=== PATIENT | male | born 1945 | race Caucasian/White ===

== ENCOUNTER 2019-11-24 12:34 | Outpatient (CLI) | payer MEDICARE, OTHER, SELFPAY ==
--- NOTE | ~2019-11-24 | XR_ITS ---
EXAMINATION: XR abdomen/kub 1V INDICATION: Right ureteral stone TECHNIQUE: Supine views of the abdomen were obtained on 2 radiographs. COMPARISON: 07/29/2017 FINDINGS: A 5 mm calcification projects in the left abdomen between the left L3 and L4 transverse pro cesses. There are phleboliths of the pelvis. The bowel gas pattern is normal. There is mild hip osteo arthritis. IMPRESSION: 1. 5 mm calcification projecting in the left mid abdomen which may be in the left kidney or possibly left ureter. Reviewed, dictated and finalized at location A. IMPRESSION: 1. 5 mm calcification projecting in the left mid abdomen which may be in the le ft kidney or possibly left ureter.
== END 2019-11-24 12:35 | disposition home or self-care (01) ==
LOC: ANHIMG 12:41
PROVIDERS: PCP Nurse Practitioner Adult Health; Visit Provider Urology
DX: N20.1 Calculus of ureter (principal)
CPT/HCPCS: 74018

== ENCOUNTER 2019-12-07 14:24 | Outpatient (CLI) | payer MEDICARE, OTHER, SELFPAY ==
--- NOTE | ~2019-12-07 | CT_ITS ---
EXAMINATION: CT abdomen pelvis wo con DATE: 12/07/2019 15:21 INDICATION: Right ureteral stone. TECHNIQUE: Computed tomography (CT) of the abdomen and pelvis was performed without intravenous contr ast. Automated exposure control and iterative reconstruction technique were employed. The dose-length product was 556.88 mGy-cm. COMPARISON: CT abdomen and pelvis 08/29/2017, 01/03/17 FINDINGS: The visualized portions of the lung bases demonstrate pleural thickening on the left. A brigida cified right lung nodule is consistent with old granulomatous disease. There is mild atelectasis and chronic lung disease of the right. There are peripheral masses and nodules in left lower lobe. For ex ample, a 5.6 x 3.3 cm mass is stable from 01/03/17. The heart size is normal. No pericardial effusion . The liver, gallbladder, spleen, pancreas, adrenal glands, and right kidney are normal. There is a 7 mm stone in proximal right ureter. There are peripelvic cysts in left kidney. There is 6 mm and 3 mm stones in left kidney. There are bilateral inguinal hernias containing fat. There is diverticulosis of the colon without evidence of diverticulitis. There are no dilated loops of bowel. The appendix is normal. There is an umbilical hernia containing fat. There are no pathologically enlarged lymph node s. There is no free intraperitoneal fluid. There is severe lumbar spondylosis. There is a chronic com pression fracture of T12. IMPRESSION: 1. 7 mm stone in proximal right ureter. No hydronephrosis. 2. Nonobstructing left kidney stones. 3. Chronic masses and nodules in left lung lower lobe, stable from 01/03/2017. These findings may be m etastatic disease and/or rounded atelectasis. Reviewed, dictated and finalized at location A. IMPRESSION: 1. 7 mm stone in proximal right ureter. No hydronephrosis. 2. Nonobstructing left kidney stones. 3. Chronic masses and nodules in left lung lower lobe, stable from 01/03/2017. T hese findings may be metastatic disease and/or rounded atelectasis.
== END 2019-12-07 14:25 | disposition home or self-care (01) ==
PROVIDERS: PCP Nurse Practitioner Adult Health; Visit Provider Urology
DX: N20.2 Calculus of kidney with calculus of ureter (principal)
CPT/HCPCS: 74176

== ENCOUNTER 2019-12-22 03:14 | Outpatient (CLI) | payer MEDICARE, OTHER, SELFPAY ==
[2019-12-22 17:56] LABS: SARS-CoV-2 RNA PCR Negative
== END 2019-12-22 03:15 | disposition home or self-care (01) ==
LOC: ANHCOVIDDT 03:14
PROVIDERS: PCP Nurse Practitioner Adult Health; Visit Provider Urology
DX: Z01.818 Encounter for other preprocedural examination (principal); Z11.59 Encounter for screening for other viral diseases
CPT/HCPCS: 87635; C9803; U0003

== ENCOUNTER 2019-12-24 02:52 | Day surgery (SDC) | payer MEDICARE, OTHER, SELFPAY ==
[2019-12-21 13:31] VITALS: BMI 32.0
--- NOTE | 2019-12-21 18:14 | P.HP_ITS ---
History of Present Illness History of Present Illness Consent: Risks, benefits, and alternatives have been discussed and questions answered. Patient agrees to proceed with procedure. Chief complaint: Right Ureteral Stone Narrative: Rufino Dela Cruz is a 73 year old male well known to our practice with a long history of BPH. He also has a history of urolithiasis requiring endoscopic extraction in 2016. In November [address]-abd/pelvis in an outside hospital suggesting a 7 mm right proximal ureteral stone. This stone was not calcified on KUB but does show up on repeat CT. After discussion of therapeutic options he has elected for cystoscopy with right ureteroscopy, laser lithotripsies, stone extraction and possible stent placement. Review of Systems Cardiovascular: Cardiovascular: Denies chest pain, Denies lightheadedness, Denies palpitations and Denies dyspnea Respiratory: Respiratory: Denies dyspnea Gastrointestinal: Gastrointestinal: Denies diarrhea, Denies nausea and Denies vomiting Genitourinary: Genitourinary: Denies hematuria and Denies dysuria Endocrine: Endocrine: Denies palpitations [facility] Social History Social History Smoking status: Never smoker Spiritual care concerns: No Meds Home Medications and Allergies Home Medications Medication Instructions Recorded Confirmed Type finasteride 5 mg PO DAILY 04/01/19 12/21/19 History [id number] 1 cap PO DAILY 04/01/19 12/21/19 History [Daily Multivitamin] nintedanib [Ofev] 100 mg PO Q12H 04/01/19 12/21/19 History Allergies Allergy/AdvReac Type Severity Reaction Status Date / Time No Known Allergies Allergy Verified 12/21/19 13:19 Exam Const: General: no acute distress Resp: Effort & Inspection: normal respiratory effort GI: Inspection: non-distended GI Palp: No abdominal tenderness and No Guarding due to palpation present (GI) Auscultation: normal bowel sounds Assessment and Plan Assessment and plan (1) Right ureteral stone: Code(s): N20.1 - Calculus of ureter Status: Acute Assessment and Plan: * cystoscopy, right ureteroscopy with laser lithotripsy, right ureteral stone extraction and possible stent placement
--- NOTE | 2019-12-23 10:00 | P.PNAN_ITS ---
Anes - Initial Pre Proc Eval Procedure: Operation Date: 12/24/19 13:00 Proposed Procedures p Cystoscopy, Right Ureteroscopy, Right Stone Extraction, Possible Right Stent Placement - Germain Dye MD s Holmium Laser Procedure - Germain Dye MD <Kenneth Crouch MD - Last Filed: 12/25/19 10:06> Date/Time: 12/23/19 10:00 <Kenneth Crouch MD - Last Filed: 12/25/19 10:06> Surgeon: Germain Dye MD <Kenneth Crouch MD - Last Filed: 12/25/19 10:06> Pre Op Diagnosis: Right Ureteral Stone <Kenneth Crouch MD - Last Filed: 12/25/19 10:06> Patient Data Age: 73 Gender: M Height: 1.78 m Weight: 101.25 kg <Kenneth Crouch MD - Last Filed: 12/25/19 10:06> Allergies Allergy/AdvReac Type Severity Reaction Status Date / Time No Known Allergies Allergy Verified 12/24/19 11:13 <Kenneth Crouch MD - Last Filed: 12/25/19 10:06> Home Medications Medication Instructions Recorded Confirmed Type Daily Multivitamin 1 cap PO DAILY 04/01/19 12/24/19 History Ofev 100 mg PO Q12H 04/01/19 12/24/19 History finasteride 5 mg PO DAILY 04/01/19 12/24/19 History hydrocodone-acetaminophen 1 - 2 tablet PO Q6H PRN #20 tablet 12/24/19 Rx sulfamethoxazole-trimethoprim 1 tablet PO Q12H #6 tablet 12/24/19 Rx <Kenneth Crouch MD - Last Filed: 12/25/19 10:06> Patient hx anesthesia problems: none <Emerson Zhao DO - Last Filed: 12/24/19 11:42> Family hx anesthesia problems: none <Emerson Zhao DO - Last Filed: 12/24/19 11:42> [facility] Past Medical History Medical History: Medical History (Updated 12/23/19 @ 10:01 by Kenneth Crouch MD) Cancer LUNG CA DX 2012 NO SURGERY. O2 AT 2L PER NC PRN Obesity OBI (obstructive sleep apnea) Right ureteral stone <Kenneth Crouch MD - Last Filed: 12/25/19 10:06> Social History Social History: Social History Smoking status: Never smoker Living arrangements: with family Spiritual care concerns: No <Kenneth Crouch MD - Last Filed: 12/25/19 10:06> Anes - Eval Final PreProcedure Day of Procedure 12/23/19 10:00 <Kenneth Crouch MD - Last Filed: 12/25/19 10:06> Patient weight: obese <Kenneth Crouch MD - Last Filed: 12/25/19 10:06> Heart: regular rate and rhythm <Kenneth Crouch MD - Last Filed: 12/25/19 10:06> Lungs: clear to auscultation and normal air movement <Kenneth Crouch MD - Last Filed: 12/25/19 10:06> Airway: Mallampati scale class II <Kenneth Crouch MD - Last Filed: 12/25/19 10:06> Neurological: alert and oriented <Kenneth Crouch MD - Last Filed: 12/25/19 10:06> Last oral intake: >/= 8 hours <Kenneth Crouch MD - Last Filed: 12/25/19 10:06> ASA classification: III <Kenneth Crouch MD - Last Filed: 12/25/19 10:06> Emergent: no <Kenneth Crouch MD - Last Filed: 12/25/19 10:06> Anesthetic plan: proceed <Kenneth Crouch MD - Last Filed: 12/25/19 10:06> Anesthesia type and monitoring: general LMA <Kenneth Crouch MD - Last Filed: 12/25/19 10:06> Informed Consent: The patient's anesthetic plan and its attendant risks and benefits were discussed with the patient/family/POA. Questions were solicited and answers provided to the satisfaction of the patient/family/POA. <Kenneth Crouch MD - Last Filed: 12/25/19 10:06
[2019-12-24] VITALS (9 sets, daily range): BP systolic 139–173; BP diastolic 66–76; PULSE 61–85; RESP 16–20; TEMP 36.3–36.4; O2SAT 97–100
--- NOTE | ~2019-12-24 | XR_ITS ---
EXAMINATION: XR retrograde pyelo w/stent RT DATE: 12/24/2019 13:42 INDICATION: Right internal ureteral stent placement TECHNIQUE: Fluoroscopic images from a right internal ureteral stent placement are submitted for jimmy sanchez 52 seconds of fluoroscopy time. FINDINGS: There is a right double-J internal ureteral stent projecting in expected position, with proximal Clyde loop at the level of the renal pelvis and distal loop in the pelvis within the bladder lumen. IMPRESSION: 1. Right internal ureteral stent placement. Please refer to real-time procedural findings for detai ls. Reviewed, dictated and finalized at location A. IMPRESSION: 1. Right internal ureteral stent placement. Please refer to real-time procedu ral findings for details.
--- NOTE | 2019-12-24 06:55 | WPDHPUPDATE1 ---
History and Physical Update Update Date/Time: 12/24/19 06:55 History and Physical has been reviewed, including an updated exam of the patient. There are NO changes in the patient's condition. Risks, benefits, and alternatives have been discussed and questions answered. Patient agrees to proceed with procedure.
[2019-12-24] MEDS: LACTATED RINGERS 1,000 ML 30 ML IV CONT (11:25)
[2019-12-24] MEDS: ceFAZolin 2 GM/D5W 50 ML 2 GM/50 ML BAG IVPB (13:03)
--- NOTE | 2019-12-24 13:41 | PM.PROC ---
Procedure Note - Detailed Date of procedure: 12/24/19 Pre-op diagnosis: Right Ureteral Stone Post-op diagnosis: same Procedure performed: Cystoscopy, right retrograde pyelography, right ureteroscopy laser lithotripsy/stone extraction and right ureteral stent placement Description of procedure: The patient was brought to the operative suite where he is prepped and draped in a routine sterile fashion while in the dorsal lithotomy position after the uneventful induction of a general LMA anesthetic. A 19F rigid cystoscope was placed in the bladder. There are no urethral strictures. His prostatic urethra measures, approximately, 1.5cm with small median lobe enlargement. The bladder mucosa was endoscopically normal without hyperemia or neoplasm. There was a single, orthotopic ureteral orifice bilaterally. A 0.035 glidewire was advanced into the right renal pelvis under fluoroscopy. The distal ureter was dilated with an 8F/10F ureteral dilator. The right retrograde pyelogram was obtained through the 10 F dilator. This confirms the presence of a large calcified right mid ureteral stone above the iliac vessels. I placed a ureteral access sheath.Ureteroscopy was undertaken with a 7.5F flexible ureteroscope and with ureteroscopy I fractured the stone into smaller pieces using a 273 micron Holmium laser fiber with the Holmium laser. I was able to then extract all visible stone pieces using a 1.9F Escape, disposable stone basket. Due to the extent of this manipulation I did place a 4.8F double-J ureteral stent. The proximal coil of the stent was confirmed to be in the renal pelvis and the distal coil in the bladder. The patient's bladder was emptied and he was taken to the recovery room having tolerated this procedure well. Anesthesia: GLMA Surgeon: Germain Dye MD Estimated blood loss (mL): 0 Drains: Yes (4.8F right ureteral stent) Packing: No Pathology: yes Complications: No immediate complications Condition: stable Disposition: PACU
--- NOTE | 2019-12-24 15:53 | SUR.PHASEII ---
PT C/O RIGHT FLANK/ABDOMINAL CRAMPING BEFORE 2ND VOID; FELT COLD; BLANKETS APPLIED. TEMP 97.4. PAIN MED GIVEN. PT RESTING.
== END 2019-12-24 16:00 | disposition home or self-care (01) ==
PROVIDERS: PCP Nurse Practitioner Adult Health; Visit Provider Urology
PROC: (CPT 52352; principal; 2019-12-24 13:00)
PROC: (CPT 52356; 2019-12-24 13:00)
DX: N20.1 Calculus of ureter (principal); N40.0 Benign prostatic hyperplasia without lower urinary tract symptoms; G47.33 Obstructive sleep apnea (adult) (pediatric); E66.9 Obesity, unspecified; Z68.32 Body mass index [BMI] 32.0-32.9, adult; Z79.899 Other long term (current) drug therapy; Z85.118 Personal history of other malignant neoplasm of bronchus and lung
CPT/HCPCS: 52356; 74420; 82365; 88300; A9270; C1769; C1894; C2617; J0690; J1100; J2405; J2704; J3010; J7120; Q9966

== ENCOUNTER 2020-01-06 09:47 | Outpatient (CLI) | payer MEDICARE, OTHER, SELFPAY ==
[2020-01-06 18:42] LABS: SARS-CoV-2 RNA PCR Negative
== END 2020-01-06 09:48 | disposition home or self-care (01) ==
LOC: ANHCOVIDDT 09:48
PROVIDERS: PCP Nurse Practitioner Adult Health; Visit Provider Urology
DX: Z20.828 Contact with and (suspected) exposure to other viral communicable diseases (principal); Z11.59 Encounter for screening for other viral diseases
CPT/HCPCS: 87635; C9803; U0003

== ENCOUNTER 2020-01-06 10:09 | Outpatient (CLI) | payer MEDICARE, OTHER, SELFPAY ==
[2020-01-06 11:23] LABS: Add Urine Microscopic? YES; Appearance Urine Clear (Clear); Bilirubin Urine Negative (Negative); Blood Urine 1+ (Negative); Color Urine Yellow (Yellow); Glucose Urine UA Negative (Negative); Ketones Urine Negative (Negative); Leukocyte Esterase Ur Negative LEU/UL (Negative); Mucus Urine Few /lpf; Nitrate Urine Negative (Negative); Protein Urine Negative (Negative); Urobilinogen Urine Negative mg/dL (<2.0)
[2020-01-06 11:31] LABS: Prothrombin Time 12.9 Seconds (11.1-14.7)
[2020-01-06 11:32] LABS: Partial Thromboplastin Time 29.4 SECONDS (22.3-36.8)
== END 2020-01-06 10:10 | disposition home or self-care (01) ==
PROVIDERS: PCP Nurse Practitioner Adult Health; Visit Provider Urology
DX: Z01.818 Encounter for other preprocedural examination (principal); N20.0 Calculus of kidney
CPT/HCPCS: 36415; 81001; 85610; 85730; 87635; C9803; U0003

== ENCOUNTER 2020-01-08 01:37 | Day surgery (SDC) | payer MEDICARE, OTHER, SELFPAY ==
[2020-01-06 10:21] VITALS: BP 138/75; PULSE 65; RESP 18; TEMP 36.7; O2SAT 96; BMI 32.5
[2020-01-08] VITALS (7 sets, daily range): BP systolic 137–165; BP diastolic 63–80; PULSE 57–70; RESP 18–20; TEMP 36.1–36.2; O2SAT 96–100
--- NOTE | ~2020-01-08 | XR_ITS ---
EXAMINATION: XR abdomen/kub 1V DATE: 01/08/2020 06:47 INDICATION: Nephrolithiasis for planned lithotripsy TECHNIQUE: A supine view of the abdomen on 2 radiographs was obtained. COMPARISON: CT dated 12/07/2019 FINDINGS: There are a pair of small stones at the lower pole of the left kidney the larger measuring 4 mm. The previously seen 8 x 3 mm stone in the distal right ureter is not definitively visualized. There are a couple unchanged small phleboliths in the right hemipelvis. Prostatic calcifications. Small amount o f gas scattered throughout nondistended bowel in a nonobstructive bowel gas pattern. Chronic T12 comp ression fracture. Moderate lower lumbar spondylosis.. IMPRESSION: 1. No change in a pair of stones at the lower pole of the left kidney. Prior stone seen in the right ureter is not identified. Reviewed, dictated and finalized at location A. IMPRESSION: 1. No change in a pair of stones at the lower pole of the left kidney. Prior st one seen in the right ureter is not identified.
--- NOTE | 2020-01-08 06:55 | WPDHPUPDATE1 ---
History and Physical Update Update Date/Time: 01/08/20 06:55 History and Physical has been reviewed, including an updated exam of the patient. There are NO changes in the patient's condition. Risks, benefits, and alternatives have been discussed and questions answered. Patient agrees to proceed with procedure.
--- NOTE | 2020-01-08 07:14 | P.PNAN_ITS ---
Anes - Initial Pre Proc Eval Procedure: Operation Date: 01/08/20 08:30 Proposed Procedures p Left Ureteral Extracorporeal Shock Wave Lithotripsy - Germain Dye MD Date/Time: 01/08/20 07:14 Surgeon: Germain Dye MD Pre Op Diagnosis: Left Ureteral Stone Patient Data Age: 74 Gender: M Height: 5 ft 9.5 in Weight: 101.5 kg Last Vital Signs Temp 36.7 C 01/06/20 10:21 Pulse 65 01/06/20 10:21 Resp 18 01/06/20 10:21 BP 138/75 01/06/20 10:21 Pulse Ox 96 01/06/20 10:21 Allergies Allergy/AdvReac Type Severity Reaction Status Date / Time No Known Allergies Allergy Verified 01/06/20 10:17 Home Medications Medication Instructions Recorded Confirmed Type Daily Multivitamin 1 cap PO DAILY 04/01/19 01/06/20 History Ofev 200 mg PO Q12H 04/01/19 01/06/20 History finasteride 5 mg PO QAM 04/01/19 01/06/20 History Patient hx anesthesia problems: none Family hx anesthesia problems: none PMFSH Past Medical History Medical History Cancer LUNG CA DX 2012 NO SURGERY. O2 AT 2L PER NC PRN Obesity OBI (obstructive sleep apnea) Right ureteral stone Social History Social History Smoking status: Never smoker Alcohol intake: current Alcohol use details: VERY RARELY Substance use: never Living arrangements: with family Spiritual care concerns: No Anes - Eval Final PreProcedure Day of Procedure 01/08/20 07:14 Patient weight: obese Heart: regular rate and rhythm Lungs: decreased breath sounds Airway: Mallampati scale class II Neurological: alert and oriented Last oral intake: >/= 8 hours ASA classification: III Emergent: no Anesthetic plan: proceed Anesthesia type and monitoring: general LMA and standard monitoring Informed Consent: The patient's anesthetic plan and its attendant risks and be nefits were discussed with the patient/family/POA. Questions were solicited and answers provided to the satisfaction of the patient/family/POA.
[2020-01-08] MEDS: LACTATED RINGERS 1,000 ML 30 ML IV CONT ×2 (07:15→09:14)
[2020-01-08] MEDS: ceFAZolin 2 GM/D5W 50 ML 2 GM/50 ML BAG IVPB (08:27)
--- NOTE | 2020-01-08 09:17 | PM.PROC ---
Procedure Note - Detailed Date of procedure: 01/08/20 Pre-op diagnosis: Left Ureteral Stone Post-op diagnosis: same Procedure performed: Left ESWL Description of procedure: The patient was brought to the operative suite where he was placed in the supine position on the Dornier lithotripsy table. The focal point of the lithotripter was placed at a 6mm left renal calculus. A total of 2500 shocks were delivered at a power setting of 4. There appeared to be good fragmentation of the stone. The patient tolerated the procedure well and was taken to the recovery room in good condition. Anesthesia: GLMA Surgeon: Germain Dye MD Estimated blood loss (mL): 0 Drains: No Packing: No Pathology: none sent Complications: No immediate complications Condition: stable Disposition: PACU
== END 2020-01-08 10:48 | disposition home or self-care (01) ==
PROVIDERS: PCP Nurse Practitioner Adult Health; Visit Provider Urology
PROC: (CPT 50590; principal; 2020-01-08 08:30)
DX: N20.1 Calculus of ureter (principal); G47.33 Obstructive sleep apnea (adult) (pediatric); E66.9 Obesity, unspecified; Z68.32 Body mass index [BMI] 32.0-32.9, adult; Z85.118 Personal history of other malignant neoplasm of bronchus and lung
CPT/HCPCS: 50590; 74018; J0131; J0690; J1100; J1885; J2405; J2704; J3010; J7120

== ENCOUNTER 2020-01-18 14:24 | Outpatient (CLI) | payer MEDICARE, OTHER, SELFPAY ==
--- NOTE | ~2020-01-18 | XR_ITS ---
EXAMINATION: XR abdomen/kub 1V DATE: 01/18/2020 14:49 INDICATION: Right ureteral stone. TECHNIQUE: A supine view of the abdomen on 2 radiographs was obtained. COMPARISON: CT abdomen and pelvis 12/07/2019 FINDINGS: There are no dilated loops of bowel. There are 6 mm and 3 mm stones in left kidney. There a re phleboliths in the pelvis. IMPRESSION: 1. Left kidney stones. Reviewed, dictated and finalized at location B. IMPRESSION: 1. Left kidney stones.
== END 2020-01-18 14:25 | disposition home or self-care (01) ==
LOC: ANHIMG 14:29
PROVIDERS: PCP Nurse Practitioner Adult Health; Visit Provider Urology
DX: N20.1 Calculus of ureter (principal); N20.0 Calculus of kidney
CPT/HCPCS: 74018

== ENCOUNTER 2020-07-25 10:38 | Outpatient (CLI) | payer MEDICARE, OTHER, SELFPAY ==
--- NOTE | ~2020-07-25 | XR_ITS ---
EXAMINATION: XR abdomen/kub 1V EXAM DATE: 07/25/2020 10:57 INDICATION: History of kidney stones. TECHNIQUE: Frontal projection of the upper abdomen, frontal projection lower abdomen/pelvis for inter pretation. There is no prior study for comparison. FINDINGS: It is difficult to identify the renal contours on this study. Again there is approximately 4 mm calcification projecting around the expected location of the lower pole of the left kidney. Ther e is mild lumbar levoscoliosis. Nonobstructive bowel gas pattern. Right basilar calcified granuloma. Some left basilar linear opacities likely atelectasis and chronic pleural blunting. IMPRESSION: 1. Probable left nephrolithiasis unchanged. Reviewed, dictated and finalized at location A. [employer]
== END 2020-07-25 10:39 | disposition home or self-care (01) ==
PROVIDERS: PCP Nurse Practitioner Adult Health; Visit Provider Urology
DX: N20.0 Calculus of kidney (principal); Z87.442 Personal history of urinary calculi
CPT/HCPCS: 74018

== ENCOUNTER 2020-12-22 00:40 | Day surgery (SDC) | payer MEDICARE, OTHER, SELFPAY ==
[2020-12-16 08:45] VITALS: BMI 28.8
--- NOTE | 2020-12-19 07:35 | PM.HPGS ---
History of Present Illness History of Present Illness Consent: Risks, benefits, and alternatives have been discussed and questions answered. Patient agrees to proceed with procedure. Chief complaint: right hydronephrosis Narrative: Rufino Dela Cruz is a 74 year who underwent cystoscopy with ureteral stone fragment removal after initial ESWL approximately 1 year ago. Recently, he developed gross hematuria. Imaging studies are unavailable to me but have a report from his medical oncologist at [facility] it shows a CT scan the abdomen and pelvis that revealed right hydronephrosis with a possible enhancing mass in the distal right ureter. He presents for cystoscopy with right ureteroscopy and right retrograde pyelography. Review of Systems Cardiovascular: Cardiovascular: Denies chest pain, Denies lightheadedness, Denies palpitations and Denies dyspnea Respiratory: Respiratory: Denies dyspnea Gastrointestinal: Gastrointestinal: Denies diarrhea, Denies nausea and Denies vomiting Genitourinary: Genitourinary: Denies hematuria and Denies dysuria Endocrine: Endocrine: Denies palpitations [facility] Past Medical History Medical History (Updated 12/19/20 @ 07:38 by Germain Dye MD) Cancer LUNG CA DX 2012 NO SURGERY. O2 AT 2L PER [place] PRN Obesity OBI (obstructive sleep apnea) Right ureteral stone Social History Social History Smoking status: Never smoker Alcohol intake: current Alcohol use details: VERY RARELY Substance use: never Living arrangements: with family Additional living arrangements comments: Spiritual care concerns: No Meds Home Medications and Allergies Home Medications Medication Instructions Recorded Confirmed Type Daily Multivitamin 1 cap PO DAILY 04/01/19 12/16/20 History finasteride 5 mg PO QAM 04/01/19 12/16/20 History nintedanib 150 mg PO Q12H 12/16/20 12/16/20 History Allergies Allergy/AdvReac Type Severity Reaction Status Date / Time No Known Allergies Allergy Verified 12/16/20 08:41 Exam Const: General: no acute distress Resp: Effort & Inspection: normal respiratory effort GI: Inspection: non-distended GI Palp: No abdominal tenderness and No Guarding due to palpation present (GI) Auscultation: normal bowel sounds Assessment and Plan Assessment and plan (1) Gross hematuria: Code(s): R31.0 - Gross hematuria Status: Acute Assessment and Plan: cystoscopy, right retrograde pyelography, right ureteroscopy
--- NOTE | 2020-12-21 10:35 | P.PNAN_ITS ---
Anes - Initial Pre Proc Eval Procedure: Operation Date: 12/22/20 12:30 Proposed Procedures p Cystoscopy, Right Retrograde Pyelography, Right Ureteroscopy - Germain Dye MD Date/Time: 12/21/20 10:35 Surgeon: Germain Dye MD Pre Op Diagnosis: right hydronephrosis Patient Data Age: 74 Gender: M Height: 1.77 m Weight: 90 kg Allergies Allergy/AdvReac Type Severity Reaction Status Date / Time No Known Allergies Allergy Verified 12/22/20 10:46 Home Medications Medication Instructions Recorded Confirmed Type Daily Multivitamin 1 cap PO DAILY 04/01/19 12/22/20 History finasteride 5 mg PO QAM 04/01/19 12/22/20 History nintedanib 150 mg PO Q12H 12/16/20 12/22/20 History Patient hx anesthesia problems: none Family hx anesthesia problems: none [facility] Past Medical History Medical History (Updated 12/19/20 @ 07:38 by Germain Dye MD) Cancer LUNG CA DX 2012 NO SURGERY. O2 AT 2L PER NC PRN Obesity OBI (obstructive sleep apnea) Right ureteral stone Social History Social History Smoking status: Never smoker Alcohol intake: current Alcohol use details: VERY RARELY Substance use: never Living arrangements: with family Additional living arrangements comments: Spiritual care concerns: No Anes - Eval Final PreProcedure Day of Procedure 12/21/20 10:35 Patient weight: overweight Heart: regular rate and rhythm Lungs: clear to auscultation and normal air movement Airway: Mallampati scale class II Neurological: alert and oriented Last oral intake: >/= 8 hours ASA classification: IV Emergent: no Anesthetic plan: proceed Anesthesia type and monitoring: general LMA and standard monitoring Informed Consent: The patient's anesthetic plan and its attendant risks and benefits were discussed with the patient/family/POA. Questions were solicited and answers provided to the satisfaction of the patient/family/POA.
[2020-12-22] VITALS (9 sets, daily range): BP systolic 153–198; BP diastolic 70–100; PULSE 55–65; RESP 11–20; TEMP 36.6; O2SAT 96–100; BMI 29.4
--- NOTE | ~2020-12-22 | XR_ITS ---
EXAMINATION: XR retrograde pyelo w/stent RT DATE: 12/22/2020 13:46 INDICATION: Gross hematuria and right hydronephrosis. TECHNIQUE: 221 fluoroscopic images of the abdomen and pelvis were obtained during procedure performed by Dr. Dye. Radiologist was not present for the imaging or procedure. The amount of fluoroscopy t mary used during this procedure was 2.6 minutes. COMPARISON: Studies dated 12/24/2019 and 12/07/2019 FINDINGS: Retrograde contrast injection into the right ureter demonstrates a focal stricture with smooth mucosa l margins in the mid right ureter at the site of a prior obstructing stone. At least mild right hydro nephrosis with small amount of contrast seen pooling within the dilated but incompletely opacified ri ght renal pelvis and calyces. Final images demonstrate placement of a right internal ureteral stent w ith loops formed in the expected location of the right renal pelvis and bladder. IMPRESSION: 1. At least mild right hydronephrosis likely resulting from a focal stricture with smooth mucosal mar gins in the mid right ureter situated at the site of a prior stone. Differential would include residu al scarring or malignancy. Correlate with procedure note. Reviewed, dictated and finalized at location A. IMPRESSION: 1. At least mild right hydronephrosis likely resulting from a focal stricture w ith smooth mucosal margins in the mid right ureter situated at the site of a pr ior stone. Differential would include residual scarring or malignancy. Correlat e with procedure note.
--- NOTE | 2020-12-22 06:18 | WPDHPUPDATE1 ---
History and Physical Update Update Date/Time: 12/22/20 06:18 History and Physical has been reviewed, including an updated exam of the patient. There are NO changes in the patient's condition. Risks, benefits, and alternatives have been discussed and questions answered. Patient agrees to proceed with procedure.
[2020-12-22] MEDS: LACTATED RINGERS 1,000 ML 30 ML IV CONT (11:03)
[2020-12-22] MEDS: ceFAZolin 2 GM/D5W 50 ML 2 GM/50 ML BAG IVPB (12:44)
[2020-12-22] MEDS: LIDOCAINE HCL 2% GEL UROJET 10 ML PKG MUCOUS MEM (13:11)
--- NOTE | 2020-12-22 13:48 | P.OP_ITS ---
Procedure Note - Detailed Date of Procedure 12/22/20 Pre-op Diagnosis right hydronephrosis Post-op Diagnosis same Procedure Performed 1. Cystoscopy with right retrograde pyelography 2. Right ureteroscopy with biopsy 3. Right ureteral stent placement Surgeon Germain Dye MD Anesthesia general Description of Procedure This patient is brought the OR where he has prepped draped in routine sterile fashion while in dorsal lithotomy position after the uneventful induction of a general anesthetic. Cystoscopy is undertaken with a 19 F rigid cystoscope. Urethra was endoscopically normal without stricture. Prostate shows lateral lobe hyperplasia with an estimated prostatic urethral length of 2.0 cm. There is no appreciable median lobe of the prostate urine from the bladder was collected for cytology. The bladder was carefully inspected and found to be perfectly normal. There is no mucosal hyperemia. There is no intravesical foreign body in neoplasm. He has a single orthotopic ureteral orifice bilaterally. He has an 8 F bulb tip catheter to do a right retrograde pyelogram. There is an area of concentric narrowing approximately 1 cm at the right mid ureter ( L4-L5 level). Was able to get a flexible and semi-rigid ureteral scope to that site but not beyond the until I dilated with a 10 cm balloon. Before dilating I obtained multiple biopsies using a small biopsy forceps. Subsequent to dilatation complete ureteral re-endoscopy was undertaken both with the semi-rigid ) in the distal ureter ) and digital flexible ureteral scope. The collecting system, including all calices proximal ureter absolutely normal without mucosal abnormalities or signs of neoplasm. The area of narrow ing shows concentric narrowing without jose manuel neoplasm. Again multiple biopsies were obtained. The remainder of the distal ureter was likewise normal. I placed a 4.8 F variable length stent. My plan will be to leave the stent for 6 weeks and reimage/re- endoscope this area before unless our biopsy show obvious neoplasm. Estimated Blood Loss 0 Drains Yes Packing No Pathology yes Complications No immediate complications Condition stable Disposition PACU
[2020-12-22] MEDS: hydrALAZINE HCL 20 MG/ML VIAL 5 MG IV PUSH (14:50)
--- NOTE | 2020-12-22 14:53 | SUR.PHASEI ---
DR. MARIN CALLED HIGH BLOOD PRESSURES; HE ORDERED 5 MG HYDRALAZINE. PT DENIES PAIN.
--- NOTE | 2020-12-22 14:54 | SUR.PHASEI ---
CORRECTION: ORDER OF HYDRALAZINE ENTERED BY THIS RN AND NOT ANH CALLAWAY RN CHARTED.
--- NOTE | 2020-12-22 15:01 | SUR.PHASEI ---
DR. MARIN STATED BP < 180/110 IS ACCEPTABLE.
== END 2020-12-22 15:42 | disposition home or self-care (01) ==
PROVIDERS: PCP Nurse Practitioner Adult Health; Visit Provider Urology
PROC: (CPT 52352; principal; 2020-12-22 12:30)
DX: N13.30 Unspecified hydronephrosis (principal); N28.89 Other specified disorders of kidney and ureter; G47.33 Obstructive sleep apnea (adult) (pediatric); Z85.118 Personal history of other malignant neoplasm of bronchus and lung
CPT/HCPCS: 52354; 52332; 74420; 88108; 88305; A9270; C1726; C1758; C1769; C2617; J0360; J0690; J1100; J2250; J2405; J2704; J3010; J7120; Q9966

== ENCOUNTER 2021-11-16 21:12 | Emergency (ER) | payer MEDICARE, OTHER, SELFPAY ==
[2021-11-16 21:16] VITALS: BP 182/91; PULSE 83; RESP 18; TEMP 37; O2SAT 96
--- NOTE | 2021-11-16 21:37 | PC.NURSE ---
food bolus removed prior to admin of medication
--- NOTE | 2021-11-16 21:48 | ED.SKABFB ---
HPI - Skin/Abscess/Foreign Bdy General Chief complaint: Skin/Abscess/Foreign Body Stated complaint: food stuck Time Seen by Provider: 11/16/21 21:16 History of Present Illness HPI narrative: Pt swallowed chicken wing and he feels like it is stuck in chest. Pt has tried to drink but it comes up. Pt says this has happened before but he has always eventually been able to pass it. Pt says his own spit comes back up after awhile. Pt has not seen GI in past. Related Data Home Medications Medication Instructions Recorded Confirmed finasteride 5 mg tablet 5 mg PO QAM 04/01/19 12/22/20 [id number] 200 mcg-vit K 100 1 cap PO DAILY 04/01/19 12/22/20 mcg-lycop 500 [id number] capsule (Daily Multivitamin) nintedanib 150 mg capsule 150 mg PO Q12H 12/16/20 12/22/20 Allergies Allergy/AdvReac Type Severity Reaction Status Date / Time No Known Allergies Allergy Verified 11/16/21 21:19 Review of Systems Review of Systems: All systems reviewed & are unremarkable except as noted in HPI and below PMFSH Past Medical History Medical History (Updated 11/16/21 @ 21:54 by Elena Cedeno III, DO) Cancer LUNG CA DX 2012 NO SURGERY. O2 AT 2L PER [place] PRN Obesity OBI (obstructive sleep apnea) Right ureteral stone Social History Social History Smoking status: Never smoker Alcohol intake: current Alcohol use details: VERY RARELY Substance use: never Additional living arrangements comments: Spiritual care concerns: No Exam Const: General: healthy appearing Nutritional Appearance: well nourished Orientation/consciousness: patient oriented x3 Limitations: no limitations HENMT: Head: normal to inspection Mouth: Yes Normal oral and palatal mucosa present Throat: posterior oropharynx normal Neck: Neck: normal visual inspection Chest: Chest palpation & inspection: normal inspection of the chest Resp: Effort & Inspection: normal respiratory effort Auscultation: clear to auscultation bilaterally Cardio: Rate: regular rate Rhythm: regular rhythm GI: GI Palp: Yes Soft to palpation Auscultation: normal bowel sounds Skin: General skin exam: normal color Rashes: no rashes Wounds: no wounds Neuro: General: patient oriented x3, moves all extremities, no meningeal signs and no focal motor deficits Speech: normal speech Extrem: General: normal to inspection Psych: Mental Status: mental status grossly normal Affect: normal affect Attitude: cooperative Course Course Emergency Course: starting IV and patient says the bolus passed and he feels fine Vital Signs Vital signs: Vital Signs Temperature 98.6 F 11/16/21 21:16 Pulse Rate 83 11/16/21 21:16 Respiratory Rate 18 11/16/21 21:16 Blood Pressure 182/91 H 11/16/21 21:16 Pulse Oximetry 96 11/16/21 21:16 Oxygen Delivery Room Air 11/16/21 21:16 Temperature 98.6 F 11/16/21 21:16 Pulse Rate 83 11/16/21 21:16 Respiratory Rate 18 11/16/21 21:16 Blood Pressure 182/91 H 11/16/21 21:16 Pulse Oximetry 96 11/16/21 21:16 Oxygen Delivery Room Air 11/16/21 21:16 Discharge Plan Discharge Clinical Impression: Esophageal foreign body Patient Disposition: Home, Self-Care Condition: Improved Instructions: Antibiotic Form, Esophageal Foreign Body (ED) Prescriptions: No Action finasteride 5 mg Tablet 5 mg PO QAM Daily Multivitamin 200-100-500 mcg Capsule 1 cap PO DAILY nintedanib 150 mg Capsule 150 mg PO Q12H hydrocodone-acetaminophen 5-325 mg tablet 1 - 2 tablet PO Q6H PRN (Reason: pain) Qty: 20 0RF sulfamethoxazole-trimethoprim 800-160 mg tablet 1 tablet PO Q12H Qty: 6 0RF Follow-up/Referrals: Олег Alvarenga MD [Physician] - Luis,MAGEN Hilario [Primary Care Provider] -
== END 2021-11-16 22:01 | disposition home or self-care (01) ==
PROVIDERS: Emergency Provider Emergency Medicine; PCP Nurse Practitioner Adult Health
DX: T18.128A Food in esophagus causing other injury, initial encounter (principal); E66.9 Obesity, unspecified; G47.33 Obstructive sleep apnea (adult) (pediatric); Z87.442 Personal history of urinary calculi; Z85.118 Personal history of other malignant neoplasm of bronchus and lung
CPT/HCPCS: 99281

== ENCOUNTER 2023-03-25 12:49 | Outpatient (CLI) | payer MEDICARE, OTHER, SELFPAY ==
--- NOTE | 2023-03-25 13:12 | ECG_ITS ---
Measurements Intervals [place] Rate: 56 P: 35 AK: 163 QRS: 4 QRSD: 112 T: 9 QT: 387 QTc: 375 Interpretive Statements SINUS BRADYCARDIA MODERATE INTRAVENTRICULAR CONDUCTION DELAY [110+ ms QRS DURATION] NO PREVIOUS ECG AVAILABLE FOR COMPARISON Electronically Signed On 03-26-2023 11:21:33 CDT by Cuong Garcia M.D.
== END 2023-03-25 12:50 | disposition home or self-care (01) ==
LOC: ANHSURGERY 12:58
PROVIDERS: PCP Internal Medicine Geriatric Medicine; Visit Provider Urology
DX: I10 Essential (primary) hypertension (principal); Z01.818 Encounter for other preprocedural examination; I45.9 Conduction disorder, unspecified
CPT/HCPCS: 93005

== ENCOUNTER 2023-03-28 00:54 | Day surgery (SDC) | payer MEDICARE, OTHER, SELFPAY ==
--- NOTE | 2023-03-22 13:32 | PC.NURSE ---
Report to the Outpatient Waiting Room, entrance under the green pavilion located off [facility], at time __1145 on date __03/28/23 . Planned Procedure Time: _1345 . Time changes happen often and if your time is changed the preop area will call you the afternoon before. - You and your visitor will be asked to self-screen and do not enter if you have any COVID symptoms. - A mask is optional within the hospital at this time. Patients may have clear liquids (water, carbonated beverages, clear teas, apple juice) until 3 hours prior to surgery with a maximum of 20 ounces. - No food from midnight until time of surgery - Infants may have breast milk until 4 hours before surgery, infant formula 6 hours prior to surgery. - Children will be allowed to drink immediately following surgery. If applicable, please bring a bottle or sippy cup to assist with drinking. Juice, water, soda, and popsicles are readily available. For infants on formula, please bring formula the day of surgery. Pacifiers are allowed. Take the following medications with a SIP of water the morning of surgery: ____AMLODIPINE DO NOT STOP ANY OF YOUR OTHER PRESCRIPTION MEDICATIONS PRIOR TO SURGERY ?EXCEPT THE FOLLOWING Medications to discontinue per physician ALL VITAMINS AND SUPPLEMENTS 3 DAY PRE OP,LAST DOSE 03/24/23 Please no make-up, nail bulgarian, hairspray, perfume, deodorant, or body powder the day of surgery. No jewelry (including any body piercings) or valuables the day of surgery, leave them at home. Please take a shower or bath the night before, or the morning of, surgery with an antibacterial soap. Wear comfortable, loose fitting clothing. Children are encouraged to wear pajamas. - Jewelry must be removed prior to entering the operating room. Rings and piercings that are not removed may be cut off. - The hospital will not accept responsibility for valuables. - Please leave all valuables, including medications, at home the day of surgery. If you are going home after surgery, a licensed river driver must drive you home. - NO public transportation without another adult if you receive anesthesia. - We recommend that an adult stay with you for 24 hours following discharge. - We also recommend that you do not drive, make important decision, drink alcoholic beverages, or take any drugs that were not prescribed by your health care provider for at least 24 hours after your discharge time. For Pediatric surgeries, we recommend two adults accompany the child home. Follow any additional instructions given to you from your surgeon. If you or anyone in your household have experienced Covid symptoms in the past week, please notify your surgeon or the nurse liaison at the phone number below for possible testing. Telephone instructions given to ___PATIENT and asked if any additional questions and then verbalized understanding. Patient advised to call surgeon office or pre surgery nurse liaison [phone] if any additional questions.
[2023-03-22 13:39] VITALS: BMI 25.1
[2023-03-28] VITALS (9 sets, daily range): BP systolic 124–160; BP diastolic 62–76; PULSE 61–93; RESP 12–18; TEMP 36.1–36.4; O2SAT 97–100
--- NOTE | ~2023-03-28 | XR_ITS ---
EXAMINATION: XR retrograde pyelo w/stent BI DATE: 03/28/2023 13:27 INDICATION: Right internal ureteral stent placement TECHNIQUE: Fluoroscopic images from a right internal ureteral stent placement and bilateral pyelogram are submitted for review. 168 seconds of fluoroscopy time. 96 images. FINDINGS: There is a right double-J internal ureteral stent projecting in expected position, with proximal Hudson loop at the level of the renal pelvis and distal loop in the pelvis within the bladder lumen. IMPRESSION: 1. Right internal ureteral stent placement. Please refer to real-time procedural findings for mary carmen driscoll. Reviewed, dictated and finalized at location A. IMPRESSION: 1. Right internal ureteral stent placement. Please refer to real-time procedu ral findings for details.
--- NOTE | 2023-03-28 06:26 | WPDHPUPDATE1 ---
History and Physical Update Update Date/Time: 03/28/23 06:26 History and Physical has been reviewed, including an updated exam of the patient. There are NO changes in the patient's condition. Risks, benefits, and alternatives have been discussed and questions answered. Patient agrees to proceed with procedure.
--- NOTE | 2023-03-28 12:21 | WPDANESEPPF ---
Anes - Initial Pre Proc Eval Procedure: Operation Date: 03/28/23 13:45 Proposed Procedures p Cystoscopy, Bilateral Retrograde Pyelogram, Possible Bilateral Ureteroscopy - Germain Dye MD Date/Time: 03/28/23 12:21 Surgeon: Germain Dye MD Pre Op Diagnosis: BPH Patient Data Age: 77 Gender: M Height: 1.75 m Weight: 76.7 kg Last Vital Signs Temp 36.1 C L 03/28/23 11:46 Pulse 69 03/28/23 11:46 Resp 16 03/28/23 11:46 BP 159/67 H 03/28/23 11:46 Pulse Ox 100 03/28/23 11:46 O2 Del Method Room Air 03/28/23 11:46 Allergies Allergy/AdvReac Type Severity Reaction Status Date / Time No Known Allergies Allergy Verified 03/28/23 12:03 Home Medications Medication Instructions Recorded Confirmed Type finasteride 5 mg tablet 5 mg PO QAM 04/01/19 03/28/23 History [id number]-[id number]-WZ 200 mcg-vit K 100 1 cap PO DAILY 04/01/19 03/28/23 History mcg-lycop 500 [id number] capsule (Daily Multivitamin) nintedanib 150 mg capsule 150 mg PO Q12H 12/16/20 03/28/23 History amlodipine 10 mg tablet 10 mg PO DAILY 03/22/23 03/28/23 History cholecalciferol (vitamin D3) 125 125 mcg PO DAILY 03/22/23 03/28/23 History mcg (5,000 unit) capsule meloxicam 7.5 mg tablet 7.5 mg PO PRN PRN Pain 03/22/23 03/28/23 History tamsulosin 0.4 mg capsule 0.4 mg PO HS 03/22/23 03/28/23 History Patient hx anesthesia problems: none Family hx anesthesia problems: none Results Review: All pre-operative results and documents have been reviewed as part of the pre-operative evaluation. [facility] Past Medical History Medical History Cancer LUNG CA DX 2012 NO SURGERY. O2 AT 2L PER [place] PRN Obesity OBI (obstructive sleep apnea) Right ureteral stone Social History Social History Smoking status: Never smoker Alcohol intake: current Alcohol use details: VERY RARELY Substance use: never Living arrangements: alone Additional living arrangements comments: Spiritual care concerns: No Anes - Eval Final PreProcedure Day of Procedure 03/28/23 12:21 Patient weight: normal Heart: regular rate and rhythm Lungs: decreased breath sounds Airway: Mallampati scale class II Neurological: alert and oriented Last oral intake: >/= 8 hours ASA classification: III Emergent: no Anesthetic plan: proceed Anesthesia type and monitoring: general LMA and standard monitoring Results Review: All pre-operative results and documents have been reviewed as part of the pre-operative evaluation. Informed Consent: The patient's anesthetic plan and its attendant risks and benefits were discussed with the patient/family/POA. Questions were solicited and answers provided to the satisfaction of the patient/family/POA.
[2023-03-28] MEDS: LACTATED RINGERS 1,000 ML 30 ML IV CONT (12:24)
[2023-03-28] MEDS: ceFAZolin 2 GM/D5W 50 ML 2 GM/50 ML BAG IVPB (12:31)
--- NOTE | 2023-03-28 13:31 | W.PM.PROC2 ---
Procedure Note - Detailed Date of Procedure 03/28/23 Pre-op Diagnosis Bilateral hydronephrosis Post-op Diagnosis Other ( Right mid ureteral stricture) Procedure Performed Cystoscopy, bilateral retrograde pyelography, right ureteroscopy with balloon dilatation of ureteral stricture and right stent placement Surgeon Germain Dye MD Anesthesia General Findings Cystoscopy/bilat RPG - Right: EXTREMELY tight mid-ureteral stricture. Difficult balloon dilatation and 6F stent placement - Left: RPG normal / no obstruction or hydronephrosis Will plan repeat right URS in 6-8 weeks. Suspect he may need chronic stent or ureterouretostoomy Description of Procedure Patient is brought to the operative suite was prepped and draped in routine sterile fashion while in dorsal lithotomy position after the uneventful induction of a general LMA anesthetic. Cystoscopy was undertaken with a 21 F rigid cystoscope. He has no urethral strictures and minimal prostatic hyperplasia. The bladder is endoscopically normal without foreign body or neoplasm. Bladder mucosa is without hyperemia. Patient does not appear to be in urinary retention. He has a single orthotopic ureteral orifice bilaterally. An 8 F bulb-tipped catheter was used to 1st obtain a left retrograde pyelogram. This appears perfectly normal without any site of obstruction or hydronephrosis. There are no filling defects in the left collecting system or ureter. Retrograde pyelography on the right side reveals a much different story, however. He has essentially complete occlusion of the right mid ureter. Was unable to blindly pass a guidewire. I did dilate the distal ureter with an 8 F 10 F dilator and performed flexible ureteroscopy with a 7.5 F flexible ureteral scope. After an exhaustive effort I was able to get a 0.035 in glidewire through the mid ureteral narrowing ( presumably stricture). I then had great difficulty dilating in any fashion at that area of obstruction. Ultimately, was able to exchange the Glidewire for a Super Stiff wire. I was then able to pass an 8 F 10 F dilator but could get a 10 cm ureteral dilating balloon. We dilated to 15 atmospheres for 5 minutes. I tried placing a 7 F ureteral stent without success but could negotiate a 6 F variable length stent into position with the proximal coil in the renal pelvis and distal coil in the bladder. I will plan to wait 6-8 weeks at which time I will arrange for repeat right ureteroscopy for further evaluation of this mid ureter. My suspicion is this represents dense scarring.
== END 2023-03-28 15:30 | disposition home or self-care (01) ==
PROVIDERS: PCP Internal Medicine Geriatric Medicine; Visit Provider Urology
PROC: (CPT 52352; principal; 2023-03-28 13:45)
DX: N13.1 Hydronephrosis with ureteral stricture, not elsewhere classified (principal); C34.90 Malignant neoplasm of unspecified part of unspecified bronchus or lung; G47.33 Obstructive sleep apnea (adult) (pediatric); Z99.81 Dependence on supplemental oxygen
CPT/HCPCS: 52344; 52332; 74420; C1726; C1758; C1769; C2617; J0690; J2405; J2704; J7120; Q9966

== ENCOUNTER 2023-06-13 01:07 | Day surgery (SDC) | payer MEDICARE, OTHER, SELFPAY ==
--- NOTE | 2023-05-08 07:45 | P.HP_ITS ---
History of Present Illness History of Present Illness Consent: Risks, benefits, and alternatives have been discussed and questions answered. Patient agrees to proceed with procedure. Chief complaint: right hydronephrosis Narrative: Patient who was found to 5 right hydronephrosis in November 2022. Subsequent retrograde pyelography ureteroscopy demonstrated a dense tight mid ureteral stricture. This has been managed with an indwelling stent. He presents for repeat retrograde pyelography, ureteroscopy and possible stent removal or replacement. Review of Systems Review of Systems: All systems reviewed & are unremarkable except as noted in HPI and below [facility] Past Medical History Medical History (Updated 03/28/23 @ 13:39 by Germain Dye MD) Cancer LUNG CA DX 2012 NO SURGERY. O2 AT 2L PER [place] PRN Obesity OBI (obstructive sleep apnea) Right ureteral stone Social History Social History Smoking status: Never smoker Alcohol intake: current Alcohol use details: VERY RARELY Substance use: never Living arrangements: alone Additional living arrangements comments: Spiritual care concerns: No Meds Home Medications and Allergies Home Medications Medication Instructions Recorded Confirmed Type finasteride 5 mg tablet 5 mg PO QAM 04/01/19 03/28/23 History [id number] 200 mcg-vit K 100 1 cap PO DAILY 04/01/19 03/28/23 History mcg-lycop 500 [id number] capsule (Daily Multivitamin) nintedanib 150 mg capsule 150 mg PO Q12H 12/16/20 03/28/23 History amlodipine 10 mg tablet 10 mg PO DAILY 03/22/23 03/28/23 History cholecalciferol (vitamin D3) 125 125 mcg PO DAILY 03/22/23 03/28/23 History mcg (5,000 unit) capsule meloxicam 7.5 mg tablet 7.5 mg PO PRN PRN Pain 03/22/23 03/28/23 History tamsulosin 0.4 mg capsule 0.4 mg PO HS 03/22/23 03/28/23 History cephalexin 500 mg capsule 500 mg PO Q8H #9 caps 03/28/23 Rx hydrocodone 5 mg-acetaminophen 325 1 - 2 tablet PO Q6H PRN pain #20 03/28/23 Rx mg tablet tabs Allergies Allergy/AdvReac Type Severity Reaction Status Date / Time No Known Allergies Allergy Verified 03/28/23 12:03 Exam Const: General: no acute distress Resp: Effort & Inspection: normal respiratory effort GI: Inspection: non-distended GI Palp: No abdominal tenderness and No Guarding due to palpation present (GI) Auscultation: normal bowel sounds Assessment and Plan Assessment and plan (1) Hydronephrosis, right: Code(s): N13.30 - Unspecified hydronephrosis Status: Acute Assessment and Plan: * Cystoscopy, right ureteral stent removal, right ureteroscopy with retrograde pyelography and possible stent replacement
[2023-05-10 15:45] VITALS: BMI 25.0
--- NOTE | 2023-05-10 15:52 | PC.NURSE ---
Report to the Outpatient Waiting Room, entrance under the green pavilion located off [facility], at time __1000 on date __05/16/23 . Planned Procedure Time: ___1200 . Time changes happen often and if your time is changed the preop area will call you the afternoon before. - You and your visitor will be asked to self-screen and do not enter if you have any COVID symptoms. - A mask is optional within the hospital at this time. Patients may have clear liquids (water, carbonated beverages, clear teas, apple juice) until 3 hours prior to surgery (0900 AM) with a maximum of 20 ounces. - No food from midnight until time of surgery - Infants may have breast milk until 4 hours before surgery, infant formula 6 hours prior to surgery. - Children will be allowed to drink immediately following surgery. If applicable, please bring a bottle or sippy cup to assist with drinking. Juice, water, soda, and popsicles are readily available. For infants on formula, please bring formula the day of surgery. Pacifiers are allowed. Take the following medications with a SIP of water the morning of surgery: AMLODIPINE, NINTEDANIB DO NOT STOP ANY OF YOUR OTHER PRESCRIPTION MEDICATIONS PRIOR TO SURGERY ?EXCEPT THE FOLLOWING Medications to discontinue per ANESTHESIA - _MULTIVITAMIN, VITAMIN D - 3 DAYS PRIOR TO SURGERY Date to take last dose___05/12/23 Please no make-up, nail mohawk, hairspray, perfume, deodorant, or body powder the day of surgery. No jewelry (including any body piercings) or valuables the day of surgery, leave them at home. Please take a shower or bath the night before, or the morning of, surgery with an antibacterial soap. Wear comfortable, loose fitting clothing. Children are encouraged to wear pajamas. - Jewelry must be removed prior to entering the operating room. Rings and piercings that are not removed may be cut off. - The hospital will not accept responsibility for valuables. - Please leave all valuables, including medications, at home the day of surgery. If you are going home after surgery, a licensed helper/driver must drive you home. - NO public transportation without another adult if you receive anesthesia. - We recommend that an adult stay with you for 24 hours following discharge. - We also recommend that you do not drive, make important decision, drink alcoholic beverages, or take any drugs that were not prescribed by your health care provider for at least 24 hours after your discharge time. For Pediatric surgeries, we recommend two adults accompany the child home. Follow any additional instructions given to you from your surgeon. If you or anyone in your household have experienced Covid symptoms in the past week, please notify your surgeon or the nurse liaison at the phone number below for possible testing. Telephone instructions given to PT and asked if any additional questions and then verbalized understanding. Patient advised to call surgeon office or pre surgery nurse liaison [phone] if any additional questions.
[2023-06-06 12:49] VITALS: BMI 25.0
--- NOTE | 2023-06-06 13:00 | PC.NURSE ---
Report to the Outpatient Waiting Room, entrance under the green pavilion located off [facility], at time _1000 on date _06/13/23 . Planned Procedure Time: ___1200 . Time changes happen often and if your time is changed the preop area will call you the afternoon before. - You and your visitor will be asked to self-screen and do not enter if you have any COVID symptoms. - A mask is optional within the hospital at this time. Patients may have clear liquids (water, carbonated beverages, clear teas, apple juice) until 3 hours prior to surgery with a maximum of 20 ounces. - No food from midnight until time of surgery - Infants may have breast milk until 4 hours before surgery, infant formula 6 hours prior to surgery. - Children will be allowed to drink immediately following surgery. If applicable, please bring a bottle or sippy cup to assist with drinking. Juice, water, soda, and popsicles are readily available. For infants on formula, please bring formula the day of surgery. Pacifiers are allowed. Take the following medications with a SIP of water the morning of surgery: __AMLODIPINE, NINTEDANIB DO NOT STOP ANY OF YOUR OTHER PRESCRIPTION MEDICATIONS PRIOR TO SURGERY ?EXCEPT THE FOLLOWING Medications to discontinue per ANESTHESIA - ___MULTIVITAMIN 3 DAYS PRIOR TO SURGERY, Date to take last dose __ Please no make-up, nail omani, hairspray, perfume, deodorant, or body powder the day of surgery. No jewelry (including any body piercings) or valuables the day of surgery, leave them at home. Please take a shower or bath the night before, or the morning of, surgery with an antibacterial soap. Wear comfortable, loose fitting clothing. Children are encouraged to wear pajamas. - Jewelry must be removed prior to entering the operating room. Rings and piercings that are not removed may be cut off. - The hospital will not accept responsibility for valuables. - Please leave all valuables, including medications, at home the day of surgery. If you are going home after surgery, a licensed taxicab driver must drive you home. - NO public transportation without another adult if you receive anesthesia. - We recommend that an adult stay with you for 24 hours following discharge. - We also recommend that you do not drive, make important decision, drink alcoholic beverages, or take any drugs that were not prescribed by your health care provider for at least 24 hours after your discharge time. For Pediatric surgeries, we recommend two adults accompany the child home. Follow any additional instructions given to you from your surgeon. If you or anyone in your household have experienced Covid symptoms in the past week, please notify your surgeon or the nurse liaison at the phone number below for possible testing. Telephone instructions given to ____PT and asked if any additional questions and then verbalized understanding. Patient advised to call surgeon office or pre surgery nurse liaison [phone] if any additional questions.
--- NOTE | 2023-06-12 07:53 | P.HP_ITS ---
History of Present Illness History of Present Illness Consent: Risks, benefits, and alternatives have been discussed and questions answered. Patient agrees to proceed with procedure. Chief complaint: right hydronephrosis Narrative: Rufino Dela Cruz is a 77 year old male who is known to have chronic right hydronephrosis. Evaluation in March 2023 showed a very tight right mid ureteral stricture that was dilated with a balloon. A 6 [place] stent was left in place and he now presents for cystoscopy with stent removal, retrograde pyelography with ureteroscopy, possible stent replacement Review of Systems Cardiovascular: Cardiovascular: Denies chest pain, Denies lightheadedness, Denies palpitations and Denies dyspnea Respiratory: Respiratory: Denies dyspnea Gastrointestinal: Gastrointestinal: Denies diarrhea, Denies nausea and Denies vomiting Genitourinary: Genitourinary: Denies hematuria and Denies dysuria Endocrine: Endocrine: Denies palpitations [facility] Past Medical History Medical History (Updated 03/28/23 @ 13:39 by Germain Dye MD) Cancer LUNG CA DX 2012 NO SURGERY. O2 AT 2L PER NC PRN Obesity OBI (obstructive sleep apnea) Right ureteral stone Social History Social History Smoking status: Never smoker Second hand tobacco smoke exposure: No Alcohol intake: current Alcohol use details: VERY RARELY Substance use: never Substance use type: does not use Living arrangements: alone Spiritual care concerns: No Meds Home Medications and Allergies Home Medications Medication Instructions Recorded Confirmed Type finasteride 5 mg tablet 5 mg PO QAM 04/01/19 06/06/23 History jomiwdpn-lea-PR 200 mcg-vit K 100 1 cap PO DAILY 04/01/19 06/06/23 History mcg-lycop 500 [id number]-eohkqn-C98 capsule (Daily Multivitamin) nintedanib 150 mg capsule 150 mg PO Q12H 12/16/20 06/06/23 History amlodipine 10 mg tablet 10 mg PO DAILY 03/22/23 06/06/23 History cholecalciferol (vitamin D3) 125 125 mcg PO DAILY 03/22/23 06/06/23 History mcg (5,000 unit) capsule meloxicam 7.5 mg tablet 7.5 mg PO PRN PRN Pain 03/22/23 06/06/23 History tamsulosin 0.4 mg capsule 0.4 mg PO HS 03/22/23 06/06/23 History Allergies Allergy/AdvReac Type Severity Reaction Status Date / Time No Known Allergies Allergy Verified 06/06/23 12:49 Exam Const: General: no acute distress Resp: Effort & Inspection: normal respiratory effort GI: Inspection: non-distended GI Palp: No abdominal tenderness and No Guarding due to palpation present (GI) Auscultation: normal bowel sounds Assessment and Plan Assessment and plan (1) Hydronephrosis, right: Code(s): N13.30 - Unspecified hydronephrosis Status: Acute Assessment and Plan: * cystoscopy, right ureteral stent removal, right retrograde pyelography, right ureteroscopy, possible stent replacement
--- NOTE | 2023-06-12 12:30 | WPDANESEPPF ---
Anes - Initial Pre Proc Eval Procedure: Operation Date: 06/13/23 11:00 Proposed Procedures p Cystoscopy, Right Ureteroscopy, Possible Right Ureteral Stent Replacement, Possible Ureteral Biopsy - Germain Dye MD Date/Time: 06/12/23 12:30 Surgeon: Germain Dye MD Pre Op Diagnosis: right hydronephrosis Patient Data Age: 77 Gender: M Height: 1.75 m Weight: 77 kg Allergies Allergy/AdvReac Type Severity Reaction Status Date / Time No Known Allergies Allergy Verified 06/13/23 09:44 Home Medications Medication Instructions Recorded Confirmed Type finasteride 5 mg tablet 5 mg PO QAM 04/01/19 06/13/23 History jlghtgbb-djo-BU 200 mcg-vit K 100 1 cap PO DAILY 04/01/19 06/06/23 History mcg-lycop 500 rjn-xszaqx-K59 capsule (Daily Multivitamin) nintedanib 150 mg capsule 150 mg PO Q12H 12/16/20 06/06/23 History amlodipine 10 mg tablet 10 mg PO DAILY 03/22/23 06/13/23 History cholecalciferol (vitamin D3) 125 125 mcg PO DAILY 03/22/23 06/06/23 History mcg (5,000 unit) capsule meloxicam 7.5 mg tablet 7.5 mg PO PRN PRN Pain 03/22/23 06/06/23 History tamsulosin 0.4 mg capsule 0.4 mg PO HS 03/22/23 06/06/23 History Patient hx anesthesia problems: none Family hx anesthesia problems: none Results Review: All pre-operative results and documents have been reviewed as part of the pre-operative evaluation. [facility] Past Medical History Medical History (Updated 06/12/23 @ 12:31 by Emerson Zhao DO) Cancer LUNG CA DX 2012 NO SURGERY. O2 AT 2L PER NC PRN Hypertension Obesity OBI (obstructive sleep apnea) Right ureteral stone Social History Social History Smoking status: Never smoker Second hand tobacco smoke exposure: No Alcohol intake: current Alcohol use details: VERY RARELY Substance use: never Substance use type: does not use Living arrangements: alone Spiritual care concerns: No Anes - Eval Final PreProcedure Day of Procedure 06/12/23 12:30 Patient weight: overweight Heart: regular rate and rhythm Lungs: clear to auscultation Airway: Mallampati scale class II Neurological: alert and oriented Last oral intake: >/= 8 hours ASA classification: III Emergent: no Anesthetic plan: proceed Anesthesia type and monitoring: general LMA and standard monitoring Results Review: All pre-operative results and documents have been reviewed as part of the pre-operative evaluation. Informed Consent: The patient's anesthetic plan and its attendant risks and benefits were discussed with the patient/family/POA. Questions were solicited and answers provided to the satisfaction of the patient/family/POA.
--- NOTE | ~2023-06-13 | XR_ITS ---
EXAMINATION: XR retrograde pyelo w/stent RT DATE: 06/13/2023 12:26 INDICATION: Right internal ureteral stent exchange. TECHNIQUE: 16 intraoperative fluoroscopic views of the abdomen and pelvis were obtained. I was not pr esent. Fluoroscopy exposure time was 85 seconds. COMPARISON: Abdomen radiograph 07/25/2020 FINDINGS: Initial images demonstrate a right internal ureteral stent in expected position. The stent was removed. The right-sided retrograde pyelogram demonstrates mild hydronephrosis. The final images demonstrate a right internal ureteral stent in expected position. IMPRESSION: 1. Right internal ureteral stent in expected position. Reviewed, dictated and finalized at location E. [employer]
--- NOTE | 2023-06-13 06:28 | WPDHPUPDATE1 ---
History and Physical Update Update Date/Time: 06/13/23 06:28 History and Physical has been reviewed, including an updated exam of the patient. There are NO changes in the patient's condition. Risks, benefits, and alternatives have been discussed and questions answered. Patient agrees to proceed with procedure.
[2023-06-13 09:40] VITALS: BP 138/78; PULSE 61; RESP 14; TEMP 36.7; O2SAT 100
[2023-06-13] MEDS: ceFAZolin 2 GM/D5W 50 ML 2 GM/50 ML BAG IVPB (11:46)
[2023-06-13] MEDS: LIDOCAINE HCL 2% GEL UROJET 10 ML PKG MUCOUS MEM (12:04)
--- NOTE | 2023-06-13 12:19 | W.PM.PROC2 ---
Procedure Note - Detailed Date of Procedure 06/13/23 Pre-op Diagnosis Right hydronephrosis Post-op Diagnosis Other ( Right hydronephrosis secondary to long (proximally 2 cm) right mid ureteral stricture) Procedure Performed Cystoscopy, right ureteral stent removal, right retrograde pyelography and right ureteroscopy, right ureteral stent replacement Surgeon Germain Dye MD Anesthesia General Findings Approximately 2-inch very narrow area of concentric narrowing consistent with right ureteral stricture at L4-L5 Description of Procedure patient is brought to the operative suite was prepped draped in routine sterile fashion while in dorsal lithotomy position after the uneventful induction of a general LMA anesthetic. Cystoscopy undertaken with a 21 F rigid cystoscope. There was no urethral strictures. Prostatic urethra was approximately 2 cm with lateral lobe hyperplasia and no significant median lobe enlargement. Bladder mucosa normal without intravesical foreign body or neoplasm. Tip of the indwelling stent is grasped and is brought to the external urethral meatus where a 0.035 in glidewire was advanced through the stent into the right renal pelvis. Stent is removed and retrograde pyelography was obtained with an open-ended ureteral catheter. He continues to have this long, proximally 2 cm area of concentric, marked narrowing of the right mid ureter at L4-L5. This is unchanged from prior evaluation and November 2019 and March 2023. There was no apparent filling defects. I was unable to dilate that area with an 8 F 10 F dilator. Ureteroscopy was undertaken with a 7.5 F digital ureteral scope. I could not advanced the ureteral scope beyond the stricture. As before ( including times when I was able to obtain biopsies of the strictured area) there was no signs of ureteral neoplasm. This point I simply opted to replace the 6 F variable length stent. My recommendations would be to manage this with chronic stent periodic changes. A segmental ureteral resection at that level would be challenging, could require ileal-interposition could end-up with a nephrouretectomy. I'll plan to change stent first in Sep, 2023 (4-months Drains Yes Pathology None sent Complications No immediate complications Condition Stable
[2023-06-13 12:25] VITALS: BP 163/73; PULSE 53; RESP 17; TEMP 36.3; O2SAT 100
[2023-06-13] MEDS: LACTATED RINGERS 1,000 ML 30 ML IV CONT (12:25)
[2023-06-13 12:40] VITALS: BP 165/74; PULSE 53; RESP 14; O2SAT 100
[2023-06-13 12:50] VITALS: BP 153/73; PULSE 53; RESP 14; O2SAT 100
[2023-06-13 13:00] VITALS: BP 159/83; PULSE 62; RESP 17; O2SAT 97
[2023-06-13 13:30] VITALS: BP 159/72; PULSE 60; RESP 18
== END 2023-06-13 13:36 | disposition home or self-care (01) ==
PROVIDERS: PCP Internal Medicine Geriatric Medicine; Visit Provider Urology
PROC: (CPT 52352; principal; 2023-06-13 11:00)
DX: N13.1 Hydronephrosis with ureteral stricture, not elsewhere classified (principal); C34.90 Malignant neoplasm of unspecified part of unspecified bronchus or lung; I10 Essential (primary) hypertension; G47.33 Obstructive sleep apnea (adult) (pediatric); Z99.81 Dependence on supplemental oxygen
CPT/HCPCS: 52332; 74420; C1758; C1769; C2617; J0690; J1100; J3010; J7120; Q9966

== ENCOUNTER 2023-12-12 01:21 | Day surgery (SDC) | payer MEDICARE, OTHER, SELFPAY ==
--- NOTE | 2023-10-02 12:43 | PC.NURSE ---
Report to the Outpatient Waiting Room, entrance under the green pavilion located off [facility], at time ___0630____ on date ___10/17/23____. Planned Procedure Time: ____829____. Time changes happen often and if your time is changed the preop area will call you the afternoon before. - You and your visitor will be asked to self-screen and do not enter if you have any COVID symptoms. - A mask is optional within the hospital at this time. Patients may have clear liquids (water, carbonated beverages, clear teas, apple juice) until 3 hours prior to surgery (0530 AM) with a maximum of 20 ounces. - No food from midnight until time of surgery - Infants may have breast milk until 4 hours before surgery, formula 6 hours prior to surgery. - Children will be allowed to drink immediately following surgery. If applicable, please bring a bottle or sippy cup to assist with drinking. Juice, water, soda, and popsicles are readily available. For infants on formula, please bring formula the day of surgery. Pacifiers are allowed. Take the following medications with a SIP of water the morning of surgery: _AMLODIPINE, NINTEDANIB_ DO NOT STOP ANY OF YOUR OTHER PRESCRIPTION MEDICATIONS PRIOR TO SURGERY ?EXCEPT THE FOLLOWING Medications to discontinue - _MELOXICAM PER DR. DAMON'S INSTRUCTIONS_ Medications to discontinue per ANESTHESIA -_MULTIVITAMIN 3 DAYS PRIOR TO SURGERY, Date to take last dose 10/13/23_ Please no make-up, nail armenian, hairspray, perfume, deodorant, or body powder the day of surgery. No jewelry (including any body piercings) or valuables the day of surgery, leave them at home. Please take a shower or bath the night before, or the morning of, surgery with an antibacterial soap. Wear comfortable, loose fitting clothing. Children are encouraged to wear pajamas. - Jewelry must be removed prior to entering the operating room. Rings and piercings that are not removed may be cut off. - The hospital will not accept responsibility for valuables. - Please leave all valuables, including medications, at home the day of surgery. If you are going home after surgery, a licensed warehouse associate driver must drive you home. - NO public transportation without another adult if you receive anesthesia. - We recommend that an adult stay with you for 24 hours following discharge. - We also recommend that you do not drive, make important decision, drink alcoholic beverages, or take any drugs that were not prescribed by your health care provider for at least 24 hours after your discharge time. For Pediatric surgeries, we recommend two adults accompany the child home. Follow any additional instructions given to you from your surgeon. If you or anyone in your household have experienced Covid symptoms in the past week, please notify your surgeon or the nurse liaison at the phone number below for possible testing. Telephone instructions given to ____PT and asked if any additional questions and then verbalized understanding. Patient advised to call surgeon office or pre surgery nurse liaison [phone] if any additional questions.
--- NOTE | 2023-10-07 07:19 | P.HP_ITS ---
History of Present Illness History of Present Illness Consent: Risks, benefits, and alternatives have been discussed and questions answered. Patient agrees to proceed with procedure. Chief complaint: Right Ureteral Stricture Narrative: Rufino Dela Cruz is a 77 year old male known to me with a longstanding very tight right mid ureteral stricture that is managed with a chronic indwelling stent. He presents now for cystoscopy with right ureteral stent exchange, right retrograde pyelography. His stent was last changed on 06/13/2023. He is aware of the risks including, but not limited to, adverse cardiopulmonary events, hematuria, urinary tract infection. Review of Systems Review of Systems: All systems reviewed & are unremarkable except as noted in HPI and below PMFSH Past Medical History Medical History (Updated 06/12/23 @ 12:31 by Emerson Zhao DO) Cancer LUNG CA DX 2012 NO SURGERY. O2 AT 2L PER NC PRN Hypertension Obesity OBI (obstructive sleep apnea) Right ureteral stone Social History Social History Smoking status: Never smoker Second hand tobacco smoke exposure: No Alcohol intake: never Alcohol use details: VERY RARELY Substance use: never Substance use type: does not use Living arrangements: alone Spiritual care concerns: No Meds Home Medications and Allergies Home Medications Medication Instructions Recorded Confirmed Type finasteride 5 mg tablet 5 mg PO QAM 04/01/19 10/02/23 History uhwozeqc-yww-TW 200 mcg-vit K 100 1 cap PO DAILY 04/01/19 10/02/23 History mcg-lycop 500 [id number]-[id number]-C38 capsule (Daily Multivitamin) nintedanib 150 mg capsule 150 mg PO Q12H 12/16/20 10/02/23 History amlodipine 10 mg tablet 10 mg PO DAILY 03/22/23 10/02/23 History cholecalciferol (vitamin D3) 125 125 mcg PO DAILY 03/22/23 10/02/23 History mcg (5,000 unit) capsule meloxicam 7.5 mg tablet 7.5 mg PO PRN PRN Pain 03/22/23 10/02/23 History tamsulosin 0.4 mg capsule 0.4 mg PO HS 03/22/23 10/02/23 History Allergies Allergy/AdvReac Type Severity Reaction Status Date / Time No Known Allergies Allergy Verified 10/02/23 12:36 Exam Const: General: no acute distress Resp: Effort & Inspection: normal respiratory effort GI: Inspection: non-distended GI Palp: No abdominal tenderness and No Guarding due to palpation present (GI) Auscultation: normal bowel sounds Assessment and Plan Assessment and plan (1) Hydronephrosis, right: Code(s): N13.30 - Unspecified hydronephrosis Status: Acute Assessment and Plan: * cystoscopy, right retrograde pyelography, right ureteral stent exchange
--- NOTE | 2023-12-06 10:23 | PM.HPGS ---
History of Present Illness History of Present Illness Consent: Risks, benefits, and alternatives have been discussed and questions answered. Patient agrees to proceed with procedure. Chief complaint: Right Ureteral Stricture Narrative: Rufino Dela Cruz is a 77 year old male well known to me with the following history: 11/2020: Cystoscopy, right ureteroscopy with biopsy -> c/w stricture. ?Dilated and stent x6 weeks. 02/01/21: ?Right stent removal 03/16: ?Renal u/s: scant right hydronephrosis / 2 stones left kidney 07/2021: ?Follow-up CT scan abdomen pelvis by his medical oncologist at [facility] shows unchanged right mild hydronephrosis ?Creat.: 1.4 09/2022: ?CT-abd/pelvis w/ contrast ([employer]): severe right hydronephrosis 01/2023: ?Renal u/s (PCP): ?- Severe right hydronephrosis / ?mild left hydronephrosis (new) 03/27/23: Cystoscopy/bilat RPG ?- Right: EXTREMELY tight mid-ureteral stricture. ?Difficult balloon dilatation and 6F stent placement ?- Left: RPG normal / no obstruction or hydronephrosis ?Will plan repeat right URS in 6-8 weeks. ?Suspect he may need chronic stent or ureterouretostoomy 05/2023: ?Discussed options (chronic indwelling stent, ureteral ureterostomy, ileal interposition, autotransplant). ?- opts for chronic stent with periodic changes Review of Systems Cardiovascular: Cardiovascular: Denies chest pain, Denies lightheadedness, Denies palpitations and Denies dyspnea Respiratory: Respiratory: Denies dyspnea Gastrointestinal: Gastrointestinal: Denies diarrhea, Denies nausea and Denies vomiting Genitourinary: Genitourinary: Denies hematuria and Denies dysuria Endocrine: Endocrine: Denies palpitations PMFSH Past Medical History Medical History (Updated 06/12/23 @ 12:31 by Emerson Zhao DO) Cancer LUNG CA DX 2013 NO SURGERY. O2 AT 2L PER [place] PRN Hypertension Obesity OBI (obstructive sleep apnea) Right ureteral stone Social History Social History Smoking status: Never smoker Second hand tobacco smoke exposure: No Alcohol intake: never Alcohol use details: VERY RARELY Substance use: never Substance use type: does not use Living arrangements: alone Spiritual care concerns: No Meds Home Medications and Allergies Home Medications Medication Instructions Recorded Confirmed Type finasteride 5 mg tablet 5 mg PO QAM 04/01/19 10/02/23 History vnjzakpl-gtq-RF 200 mcg-vit K 100 1 cap PO DAILY 04/01/19 10/02/23 History mcg-lycop 500 tpg-wqqtuh-B67 capsule (Daily Multivitamin) nintedanib 150 mg capsule 150 mg PO Q12H 12/16/20 10/02/23 History amlodipine 10 mg tablet 10 mg PO DAILY 03/22/23 10/02/23 History cholecalciferol (vitamin D3) 125 125 mcg PO DAILY 03/22/23 10/02/23 History mcg (5,000 unit) capsule meloxicam 7.5 mg tablet 7.5 mg PO PRN PRN Pain 03/22/23 10/02/23 History tamsulosin 0.4 mg capsule 0.4 mg PO HS 03/22/23 10/02/23 History Allergies Allergy/AdvReac Type Severity Reaction Status Date / Time No Known Allergies Allergy Verified 10/02/23 12:36 Exam Const: General: no acute distress Resp: Effort & Inspection: normal respiratory effort GI: Inspection: non-distended GI Palp: No abdominal tenderness and No Guarding due to palpation present (GI) Auscultation: normal bowel sounds Assessment and Plan Assessment and plan (1) Hydronephrosis, right: Code(s): N13.30 - Unspecified hydronephrosis Status: Acute Assessment and Plan: Cystoscopy, right ureteral stent exchange
[2023-12-10 14:29] VITALS: BMI 22.4
--- NOTE | 2023-12-10 14:37 | PC.NURSE ---
Report to the Outpatient Waiting Room, entrance under the green pavilion located off [facility], at time _0600_ on date _12/12/23_. Planned Procedure Time: __729_. Time changes happen often and if your time is changed the preop area will call you the afternoon before. - You and your visitor will be asked to self-screen and do not enter if you have any COVID symptoms. - A mask is optional within the hospital at this time. Patients may have clear liquids (water, carbonated beverages, clear teas, apple juice) until 3 hours prior to surgery with a maximum of 20 ounces. - No food from midnight until time of surgery - Infants may have breast milk until 4 hours before surgery, formula 6 hours prior to surgery. - Children will be allowed to drink immediately following surgery. If applicable, please bring a bottle or sippy cup to assist with drinking. Juice, water, soda, and popsicles are readily available. For infants on formula, please bring formula the day of surgery. Pacifiers are allowed. Take the following medications with a SIP of water the morning of surgery: AMLODIPNE DO NOT STOP ANY OF YOUR OTHER PRESCRIPTION MEDICATIONS PRIOR TO SURGERY ?EXCEPT THE FOLLOWING Medications to discontinue per physician VITAMINS Date to take last dose PT HAS STOPPED Please no make-up, nail maltese, hairspray, perfume, deodorant, or body powder the day of surgery. No jewelry (including any body piercings) or valuables the day of surgery, leave them at home. Please take a shower or bath the night before, or the morning of, surgery with an antibacterial soap. Wear comfortable, loose fitting clothing. Children are encouraged to wear pajamas. - Jewelry must be removed prior to entering the operating room. Rings and piercings that are not removed may be cut off. - The hospital will not accept responsibility for valuables. - Please leave all valuables, including medications, at home the day of surgery. If you are going home after surgery, a licensed courtesy bus driver must drive you home. - NO public transportation without another adult if you receive anesthesia. - We recommend that an adult stay with you for 24 hours following discharge. - We also recommend that you do not drive, make important decision, drink alcoholic beverages, or take any drugs that were not prescribed by your health care provider for at least 24 hours after your discharge time. For Pediatric surgeries, we recommend two adults accompany the child home. Follow any additional instructions given to you from your surgeon. If you or anyone in your household have experienced Covid symptoms in the past week, please notify your surgeon or the nurse liaison at the phone number below for possible testing. Telephone instructions given to _PATIENT_and asked if any additional questions and then verbalized understanding. Patient advised to call surgeon office or pre surgery nurse liaison [phone] if any additional questions.
[2023-12-12] VITALS (9 sets, daily range): BP systolic 131–149; BP diastolic 58–84; PULSE 57–69; RESP 12–20; TEMP 36.2–36.7; O2SAT 98–100; BMI 23.5
--- NOTE | ~2023-12-12 | XR_ITS ---
EXAMINATION: XR retrograde pyelo w/stent RT DATE: 12/12/2023 07:51 INDICATION: Right internal ureteral stent placement TECHNIQUE: Fluoroscopic images from a right internal ureteral stent placement are submitted for jimmy sanchez 19 seconds of fluoroscopy time. FINDINGS: There is a right double-J internal ureteral stent projecting in expected position, with proximal [place] loop at the level of the renal pelvis and distal loop in the pelvis within the bladder lumen. IMPRESSION: 1. Right internal ureteral stent placement. Please refer to real-time procedural findings for mary carmen ls. Reviewed, dictated and finalized at location B. IMPRESSION: 1. Right internal ureteral stent placement. Please refer to real-time procedu ral findings for details.
--- NOTE | 2023-12-12 06:28 | WPDHPUPDATE1 ---
History and Physical Update Update Date/Time: 12/12/23 06:28 History and Physical has been reviewed, including an updated exam of the patient. There are NO changes in the patient's condition. Risks, benefits, and alternatives have been discussed and questions answered. Patient agrees to proceed with procedure.
[2023-12-12] MEDS: LACTATED RINGERS 1,000 ML 30 ML IV CONT (06:30)
--- NOTE | 2023-12-12 06:50 | WPDANESEPPF ---
Anes - Initial Pre Proc Eval Procedure: Operation Date: 12/12/23 07:30 Proposed Procedures p Cystoscopy, Right Ureteral Stent Exchange, Right Retrograde Pyelography - Germain Dye MD Date/Time: 12/12/23 06:50 Surgeon: Germain Dye MD Pre Op Diagnosis: Right Ureteral Stricture Patient Data Age: 77 Gender: M Height: 1.75 m Weight: 69 kg Allergies Allergy/AdvReac Type Severity Reaction Status Date / Time No Known Allergies Allergy Verified 12/12/23 06:14 Home Medications Medication Instructions Recorded Confirmed Type finasteride 5 mg tablet 5 mg PO QAM 04/01/19 12/10/23 History rtoydwaq-aca-PD 200 mcg-vit K 100 1 cap PO DAILY 04/01/19 12/12/23 History mcg-lycop 500 eut-pwvnee-K61 capsule (Daily Multivitamin) nintedanib 150 mg capsule 150 mg PO Q12H 12/16/20 12/10/23 History amlodipine 10 mg tablet 10 mg PO DAILY 03/22/23 12/12/23 History cholecalciferol (vitamin D3) 125 125 mcg PO DAILY 03/22/23 12/12/23 History mcg (5,000 unit) capsule meloxicam 7.5 mg tablet 7.5 mg PO PRN PRN Pain 03/22/23 12/10/23 History tamsulosin 0.4 mg capsule 0.4 mg PO HS 03/22/23 12/10/23 History Patient hx anesthesia problems: none Family hx anesthesia problems: none Results Review: All pre-operative results and documents have been reviewed as part of the pre-operative evaluation. [facility] Past Medical History Medical History Cancer LUNG CA DX 2012 NO SURGERY. O2 AT 2L PER [place] PRN Hypertension Obesity BOI (obstructive sleep apnea) Right ureteral stone Social History Social History Smoking status: Never smoker Second hand tobacco smoke exposure: No Alcohol intake: current Alcohol use details: R[employer]ER Substance use: never Substance use type: does not use Living arrangements: alone Spiritual care concerns: No Anes - Eval Final PreProcedure Day of Procedure 12/12/23 06:50 Patient weight: normal Heart: regular rate and rhythm Lungs: clear to auscultation Airway: Mallampati scale class II Neurological: alert and oriented Last oral intake: >/= 8 hours ASA classification: III Emergent: no Anesthetic plan: proceed Anesthesia type and monitoring: general LMA and standard monitoring Results Review: All pre-operative results and documents have been reviewed as part of the pre-operative evaluation. HTN, OBI on CPAP. Informed Consent: The patient's anesthetic plan and its attendant risks and benefits were discussed with the patient/family/POA. Questions were solicited and answers provided to the satisfaction of the patient/family/POA.
[2023-12-12] MEDS: ceFAZolin 2 GM/D5W 50 ML 2 GM/50 ML BAG IVPB (07:25)
--- NOTE | 2023-12-12 07:42 | W.PM.PROC2 ---
Procedure Note - Detailed Date of Procedure 12/12/23 Pre-op Diagnosis Right Ureteral Stricture Post-op Diagnosis Same Procedure Performed Cystoscopy right, right ureteral stent removal and replacement Surgeon Germain Dye MD Anesthesia General Description of Procedure Patient is to the operative suite where he was prepped and draped in routine sterile fashion while in a dorsal lithotomy position. Cystoscopy was undertaken with 21 F rigid cystoscope after the induction general LMA anesthetic. Tip of the indwelling stent is grasped. Is moderately encrusted think our interval time should be no longer 6 months. Stent is removed. Retrograde pyelography is obtained with a [place] catheter to ensure appropriate placement stent. A 6 F variable length stent is positioned with the proximal coil in the renal pelvis and distal coil bladder. Scopes wires removed. The patient tolerated procedure well was taken recovery good condition. will plan to change the stent in early May Estimated Blood Loss 0 Drains Yes Packing No Pathology Yes Complications No immediate complications Condition Stable
--- NOTE | 2023-12-12 08:10 | SUR.PHASEI ---
0810: Simple mask removed.
--- NOTE | 2023-12-12 09:17 | SUR.PHASEII ---
0915 - Dr. Dye aware of pt currently taking zpack for cold. Dr. Dye stated for patient to continue to take zpack and not to take antibiotic sent to pharmacy. patient aware
== END 2023-12-12 09:15 | disposition home or self-care (01) ==
PROVIDERS: PCP Internal Medicine Geriatric Medicine; Visit Provider Urology
PROC: (CPT 52352; principal; 2023-12-12 07:30)
DX: N13.1 Hydronephrosis with ureteral stricture, not elsewhere classified (principal); I10 Essential (primary) hypertension; G47.33 Obstructive sleep apnea (adult) (pediatric); Z85.118 Personal history of other malignant neoplasm of bronchus and lung
CPT/HCPCS: 52332; 74420; C1758; C1769; C2617; J0690; J2405; J2704; J7120; Q9966

== ENCOUNTER 2024-05-28 10:12 | Outpatient (CLI) | payer MEDICARE, OTHER, SELFPAY ==
--- NOTE | 2024-05-28 10:17 | ECG_ITS ---
Test Date: 2024-05-28 10:34:05 Measurements Intervals [place] Rate: 62 P: 34 WI: 154 QRS: 0 QRSD: 121 T: -6 QT: 383 QTc: 391 Interpretive Statements SINUS RHYTHM MODERATE INTRAVENTRICULAR CONDUCTION DELAY [110+ ms QRS DURATION] No previous ECG available for comparison Electronically Signed On 06-01-2024 14:21:02 CANVAS SHRINKER by Jason Good M.D.
== END 2024-05-28 10:13 | disposition home or self-care (01) ==
LOC: ANHSURGERY 10:16
PROVIDERS: PCP Internal Medicine Geriatric Medicine; Visit Provider Urology
DX: Z01.810 Encounter for preprocedural cardiovascular examination (principal); R94.31 Abnormal electrocardiogram [ECG] [EKG]; I10 Essential (primary) hypertension
CPT/HCPCS: 93005

== ENCOUNTER 2024-06-04 00:13 | Day surgery (SDC) | payer MEDICARE, OTHER, SELFPAY ==
[2024-05-21 08:31] VITALS: BMI 24.7
--- NOTE | 2024-05-21 08:46 | PC.NURSE ---
Report to the Outpatient Waiting Room, entrance under the green pavilion located off [facility], at time __06:00am on date __06/04/24 . Planned Procedure Time: __07:30am .? Time changes happen often and if your time is changed the preop area will call you the afternoon before. - You and your visitor will be asked to self-screen and do not enter if you have any COVID symptoms. Please call surgeon if you need to reschedule. - A mask is optional within the hospital at this time. Patients may have clear liquids (water, carbonated beverages, clear teas, apple juice) until 3 hours prior to surgery with a maximum of 20 ounces. - No food from midnight until time of surgery and no smoking. This includes no chewing gum, candy or mints.(04:30am) Take only the following medications with a SIP of water on the morning of surgery: ____Amlodipine, Hydrocodone or Tylenol if needed DO NOT STOP ANY OF YOUR OTHER PRESCRIPTION MEDICATIONS PRIOR TO SURGERY EXCEPT THE FOLLOWING Medications to discontinue per physician ____Hold all vitamins and supplements for 3 days prior per Anesthesia Date to take last dose 05/31/24 Please no make-up, nail french, hairspray, perfume, deodorant, or body powder the day of surgery.? No jewelry (including any body piercings) or valuables the day of surgery, leave them at home.? Please take a shower or bath the night before, or the morning of, surgery with an antibacterial soap.? Wear comfortable, loose fitting clothing.? - Jewelry must be removed prior to entering the operating room.? Rings and piercings that are not removed may be cut off. - The hospital will not accept responsibility for valuables.? - Please leave all valuables, including medications, at home the day of surgery. If you are going home after surgery, a licensed otr flatbed driver must drive you home.? - NO public transportation without another adult if you receive anesthesia. - We recommend that an adult stay with you for 24 hours following discharge. - We also recommend that you do not drive, make important decision, drink alcoholic beverages, or take any drugs that were not prescribed by your health care provider for at least 24 hours after your discharge time. Follow any additional instructions given to you from your surgeon. Telephone instructions given to __Patient and asked if any additional questions and then verbalized understanding. Patient advised to call surgeon office or pre surgery nurse liaison [phone] if any additional questions.
--- NOTE | 2024-05-28 13:58 | P.HP_ITS ---
History of Present Illness History of Present Illness Consent: Risks, benefits, and alternatives have been discussed and questions answered. Patient agrees to proceed with procedure. Chief complaint: Federico Hydronephrosis Narrative: Rufino Dela Cruz is a 78 year old male: 11/2020: Cystoscopy, right ureteroscopy with biopsy -> c/w stricture. ?Dilated and stent x6 weeks. 02/01/21: ?Right stent removal 03/16: ?Renal u/s: scant right hydronephrosis / 2 stones left kidney 07/2021: ?Follow-up CT scan abdomen pelvis by his medical oncologist at [facility] shows unchanged right mild hydronephrosis ?Creat.: 1.4 09/2022: ?CT-abd/pelvis w/ contrast ([facility] [place] [facility]): severe right hydronephrosis 01/2023: ?Renal u/s (PCP): ?- Severe right hydronephrosis / ?mild left hydronephrosis (new) 03/27/23: Cystoscopy/bilat RPG ?- Right: EXTREMELY tight mid-ureteral stricture. ?Difficult balloon dilatation and 6F stent placement ?- Left: RPG normal / no obstruction or hydronephrosis ?Will plan repeat right URS in 6-8 weeks. ?Suspect he may need chronic stent or ureterouretostoomy 05/2023: ?Discussed options (chronic indwelling stent, ureteral ureterostomy, ileal interposition, autotransplant). ?- opts for chronic stent with periodic changes 12/06/23: Right stent exchange without difficulty We will keep interval for exchange at 6 months Review of Systems Review of Systems: All systems reviewed & are unremarkable except as noted in HPI and below PMFSH Past Medical History Medical History Cancer LUNG CA DX 2012 NO SURGERY. O2 AT 2L PER [place] PRN Hypertension Obesity OBI (obstructive sleep apnea) Right ureteral stone Social History Social History Smoking status: Never smoker Second hand tobacco smoke exposure: No Alcohol intake: never Alcohol use details: RARE BEER Substance use: never Substance use type: does not use Living arrangements: alone Spiritual care concerns: No Meds Home Medications and Allergies Home Medications ?Medication ?Instructions ?Recorded ?Confirmed ?Type finasteride 5 mg tablet 5 mg PO QAM 04/01/19 05/21/24 History mqyanjhd-wow-FY 200 mcg-vit K 100 1 cap PO DAILY 04/01/19 05/21/24 History mcg-lycop 500 [id number] capsule (Daily Multivitamin) nintedanib 150 mg capsule 150 mg PO Q12H 12/16/20 05/21/24 History amlodipine 10 mg tablet 10 mg PO DAILY 03/22/23 05/21/24 History cholecalciferol (vitamin D3) 125 125 mcg PO DAILY 03/22/23 05/21/24 History mcg (5,000 unit) capsule meloxicam 7.5 mg tablet 7.5 mg PO PRN PRN Pain 03/22/23 05/21/24 History tamsulosin 0.4 mg capsule 0.4 mg PO HS 03/22/23 05/21/24 History hydrocodone 5 mg-acetaminophen 325 1 - 2 tablet PO Q6H PRN pain #20 12/12/23 05/21/24 Rx mg tablet tabs mirtazapine 15 mg tablet 15 mg PO HS 05/21/24 05/21/24 History Allergies Allergy/AdvReac Type Severity Reaction Status Date / Time No Known Allergies Allergy Verified 12/12/23 06:14 Exam Const: General: no acute distress Resp: Effort & Inspection: normal respiratory effort GI: Inspection: non-distended GI Palp: No abdominal tenderness and No Guarding due to palpation present (GI) Auscultation: normal bowel sounds Assessment and Plan Assessment and plan (1) Hydronephrosis, right: Code(s): N13.30 - Unspecified hydronephrosis Status: Acute Assessment and Plan: * Cystoscopy, right ureteral stent exchange
[2024-06-04] VITALS (7 sets, daily range): BP systolic 147–165; BP diastolic 61–79; PULSE 53–63; RESP 14–20; TEMP 36.1–36.4; O2SAT 97–100
--- NOTE | ~2024-06-04 | XR_ITS ---
EXAMINATION: XR retrograde pyelo w/stent RT DATE: 06/04/2024 08:51 INDICATION: Right ureteral stent exchange. TECHNIQUE: Fluoroscopic images from a right internal ureteral stent placement are submitted for jimmy sanchez 84 seconds of fluoroscopy time. FINDINGS: There is a right double-J internal ureteral stent projecting in expected position, with proximal [place] loop at the level of the renal pelvis and distal loop in the pelvis within the bladder lumen. IMPRESSION: 1. Right internal ureteral stent exchange. Please refer to real-time procedural findings for detail s. Reviewed, dictated and finalized at location B. RCEMENT MANAGER IMPRESSION: 1. Right internal ureteral stent exchange. Please refer to real-time procedur al findings for details.
--- NOTE | 2024-06-04 06:23 | WPDHPUPDATE1 ---
History and Physical Update Update Date/Time: 06/04/24 06:23 History and Physical has been reviewed, including an updated exam of the patient. There are NO changes in the patient's condition. Risks, benefits, and alternatives have been discussed and questions answered. Patient agrees to proceed with procedure.
[2024-06-04] MEDS: LACTATED RINGERS 1,000 ML 30 ML IV CONT (07:30)
--- NOTE | 2024-06-04 08:06 | WPDANESEPPF ---
Anes - Initial Pre Proc Eval Procedure: Operation Date: 06/04/24 09:00 Proposed Procedures p Cystoscopy, Right Ureteral Stent Exchange - Germain Dye MD Date/Time: 06/04/24 08:06 Surgeon: Germain Dye MD Pre Op Diagnosis: Federico Hydronephrosis Patient Data Age: 78 Gender: M Height: 1.78 m Weight: 78.2 kg Allergies Allergy/AdvReac Type Severity Reaction Status Date / Time No Known Allergies Allergy Verified 12/12/23 06:14 Home Medications ?Medication ?Instructions ?Recorded ?Confirmed ?Type finasteride 5 mg tablet 5 mg PO QAM 04/01/19 05/21/24 History vahnsppf-qqm-YX 200 mcg-vit K 100 1 cap PO DAILY 04/01/19 05/21/24 History mcg-lycop 500 [id number] capsule (Daily Multivitamin) nintedanib 150 mg capsule 150 mg PO Q12H 12/16/20 05/21/24 History amlodipine 10 mg tablet 10 mg PO DAILY 03/22/23 05/21/24 History cholecalciferol (vitamin D3) 125 125 mcg PO DAILY 03/22/23 05/21/24 History mcg (5,000 unit) capsule meloxicam 7.5 mg tablet 7.5 mg PO PRN PRN Pain 03/22/23 05/21/24 History tamsulosin 0.4 mg capsule 0.4 mg PO HS 03/22/23 05/21/24 History hydrocodone 5 mg-acetaminophen 325 1 - 2 tablet PO Q6H PRN pain #20 12/12/23 05/21/24 Rx mg tablet tabs mirtazapine 15 mg tablet 15 mg PO HS 05/21/24 05/21/24 History Patient hx anesthesia problems: none Family hx anesthesia problems: none Results Review: All pre-operative results and documents have been reviewed as part of the pre-operative evaluation. [facility] Past Medical History Medical History Hypertension Obesity OBI (obstructive sleep apnea) Cancer LUNG CA DX 2012 NO SURGERY. O2 AT 2L PER [place] PRN Right ureteral stone Social History Social History Smoking status: Never smoker Second hand tobacco smoke exposure: No Alcohol intake: never Alcohol use details: RARE BEER Substance use: never Substance use type: does not use Living arrangements: alone Spiritual care concerns: No Anes - Eval Final PreProcedure Day of Procedure 06/04/24 08:06 Patient weight: normal Heart: regular rate and rhythm Lungs: decreased breath sounds Airway: Mallampati scale class II Neurological: alert and oriented Last oral intake: >/= 8 hours ASA classification: III Emergent: no Anesthetic plan: proceed Anesthesia type and monitoring: general LMA Results Review: All pre-operative results and documents have been reviewed as part of the pre-operative evaluation. Informed Consent: The patient's anesthetic plan and its attendant risks and benefits were discussed with the patient/family/POA. Questions were solicited and answers provided to the satisfaction of the patient/family/POA.
[2024-06-04] MEDS: ceFAZolin 2 GM/D5W 50 ML 2 GM/50 ML BAG IVPB (08:22)
--- NOTE | 2024-06-04 09:00 | P.OP_ITS ---
Procedure Note - Detailed Date of Procedure 06/04/24 Pre-op Diagnosis Right hydronephrosis Post-op Diagnosis Same Procedure Performed Cystoscopy, right retrograde pyelography, right ureteral stent exchange Surgeon Germain Dye MD Anesthesia General Description of Procedure Patient is to the operative suite where he was prepped and draped in routine sterile fashion while in a dorsal lithotomy position. Cystoscopy was undertaken with 21 F rigid cystoscope after the induction general LMA anesthetic. Tip of the indwelling stent is grasped. It is mildly encrusted and I think our interval time should be no longer 6 months. Stent is removed. Retrograde pyelography is obtained with a [place] catheter to ensure appropriate placement stent. A 6 F variable length stent is positioned with the proximal coil in the renal pelvis and distal coil bladder. Scopes wires removed. The patient tolerated procedure well was taken recovery good condition. will plan to change the stent in November 2024 Drains No Pathology None sent Complications No immediate complications Condition Stable
== END 2024-06-04 10:23 | disposition home or self-care (01) ==
PROVIDERS: PCP Internal Medicine Geriatric Medicine; Visit Provider Urology
PROC: (CPT 52352; principal; 2024-06-04 09:00)
DX: N13.30 Unspecified hydronephrosis (principal); I10 Essential (primary) hypertension; G47.33 Obstructive sleep apnea (adult) (pediatric); Z79.891 Long term (current) use of opiate analgesic; Z85.118 Personal history of other malignant neoplasm of bronchus and lung
CPT/HCPCS: 52332; 74420; C1758; C1769; C2617; J0690; J1100; J2405; J2704; J7120; Q9966